=== PATIENT | male | born 1960 | race Caucasian/White ===

== ENCOUNTER 2021-03-12 14:42 | Emergency (ER) | payer OTHER, BC, SELFPAY ==
[2021-03-12 14:55] VITALS: BP 147/92; PULSE 61; RESP 19; TEMP 36.8; O2SAT 97; BMI 39.6
--- NOTE | 2021-03-12 15:04 | XR_ITS ---
PROCEDURE INFORMATION: Exam: XR Left Wrist Exam date and time: 03/12/2021 3:04 PM Age: 61 years old Clinical indication: Wrist; Left; Patient HX: Swelling and pain since . HX of gout; Additional info: Swelling/pain TECHNIQUE: Imaging protocol: XR Left wrist. Views: 3 or more views. COMPARISON: No relevant prior studies available. FINDINGS: Bones/joints: No acute fracture or dislocation. 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 Soft tissues: Normal. IMPRESSION: No acute fracture or dislocation.
[2021-03-12 15:20] LABS: Uric Acid 7.4 mg/dl (3.5-8.5)
--- NOTE | 2021-03-12 15:29 | HMH.EDUTC ---
[facility] [place] Clinical Impression: Cellulitis Qualifiers: Site of cellulitis: unspecified site Qualified Code(s): L03.90 - Cellulitis, unspecified Disposition: Home, Self-Care Condition on Discharge: Good Instructions: Cellulitis, Cephalexin Additional Instructions: *Start antibiotic(s) immediately and be sure to take as ordered for the FULL length of time although you may be feeling better or start to see improvement in the next 24-48 hours *Monitor closely. Outlined redness so that you can monitor easier. Follow up immediately for new or worsening symptoms including but not limited to redness, swelling, streaking from site fever or chills. *Warm compress 15 minutes 3-4 times day *Never squeeze or pop these on your own. Seek immediate medical attention next time this occurs *Monitor Temp. Tylenol every 4 hours as needed and ibuprofen every 6 hours as needed (as long as your primary care doctor has told you that it is ok to take both. For fever, aches, pain. ER if no less that 101 despite Tylenol and ibuprofen Follow up with your family doctor/primary care physician in the next 48-72 hours if no improvement Return if needed Straight to ER if any life threatening symptoms Prescriptions: cephALEXin [cephALEXin 500mg capsule*] 500 mg PO Q6H 5 Days #20 cap Transmission Status: Pending to [id number] Referrals: Lauro Mandel [Primary Care Provider] - As needed Time of Disposition: 16:09 Medical Decision Making - Andrea Inquiry Pt receiving controlled substance: No Andrea was queried for this patient: No Vital Signs: 03/12/21 14:55 Temperature 98.3 F Temperature Source Oral Pulse Rate [Right Brachial] 61 Respiratory Rate 19 Blood Pressure [Right Arm] 147/92 H Blood Pressure Mean [Right Arm] 110 Blood Pressure Source [Right Arm] Automatic Cuff Blood Pressure Position [Right Arm] Sitting 02 Sat by Pulse Oximetry 97 Oxygen Delivery Method Room Air - Lab Data Lab results reviewed: Yes: I reviewed the patient's lab results. Lab Results 03/12/21 15:00: Uric Acid 7.4 Orders (Tests/Meds): ORDERS Category Date Time Status XR wrist LT min 3V Stat Exams 03/12/21 15:04 Taken - Radiology Data #1 Image(s): Wrist Image Reviewed: Yes I have reviewed radiologist's interpretation Preliminary Findings: No Fracture Seen Medical Decision Narrative: Patient wrist warm, red and swollen has history of gout but states that he has not had attack in many years States that she was rolling hay and was getting poked with straw and unsure if he may have infection [facility] [place] HPI - General Stated complaint: pain and swelling in L forearm and wrist Time Seen by Provider: 03/12/21 15:29 Mode of Arrival: Ambulatory Source of Information: Patient Limitations: No Limitations Description of Symptoms (Recalled from Triage Doc. by RN): PATIENT C/O PAIN AND SWELLING TO LEFT WRIST SINCE SATURDAY. NO KNOWN INJURY. SOME REDNESS AND WARMTH NOTED TO AREA HEENT Symptoms (Recalled from RN notes): No Resp Symptoms (Recalled from RN notes): No Skin Symptoms (Recalled from RN notes): No MS Symptoms (Recalled from RN notes): Yes Functional Status (Recalled from RN notes): WNL - History of Present Illness Provider Complaint: Patient states that he was rolling hay earlier in the week and noticed he was having pain in his left wrist States that he didnt do anything to hurt it that he is aware of State that he has a history of gout and is currently on allpurinol but he was on vacation last week and forgot this medication at home State that now he is having pain, redness and swelling in his left wrist and hurts when he moves it - Related Data Home Medications Medication Instructions Recorded Confirmed Levothyroxine Sodium [Euthyrox] 125 mcg PO DAILY 03/12/21 03/12/21 Metformin HCl 1,000 mg PO BID 03/12/21 03/12/21 allopurinoL [Allopurinol 100mg 100 mg PO DAILY 03/12/21 03/12/21 tablet] Previous Rx's Medication Instru
[2021-03-12 16:10] VITALS: BP 147/92; PULSE 61; RESP 19; TEMP 36.8; O2SAT 97
== END 2021-03-12 16:23 | disposition home or self-care (01) ==
PROVIDERS: Emergency Provider Nurse Practitioner; PCP Family Medicine
DX: L03.114 Cellulitis of left upper limb (principal)
CPT/HCPCS: 73110; 84550; 96372; 99202; G0463